=== PATIENT | male | born 1970 | race African-American/Black ===

== ENCOUNTER 2018-05-02 16:21 | Observation (INO) ==
[2018-05-02 17:16] LABS: Basophils # 0.1 10*3/uL (0.0-0.2); Basophils % 0.7 % (0.0-0.8); Eosinophils # 0.1 10*3/uL (0.0-0.87); Eosinophils % 0.9 % (0.00-10.9); Hematocrit 49.3 VOL% (42.0-52.0); Hemoglobin 16.2 GM/DL (14.0-18.0); Immature Granulocytes % 0.2 %; Immature Granulocytes Absolute 0.02 #; Lymphocytes # 2.3 10*3/uL (1.4-4.0); Lymphocytes % 26.9 % (21.2-54.2); Mean Corpuscular HGB Conc 32.9 GM/DL (32-36); Mean Corpuscular Hemoglobin 30 PG (27-34); Mean Corpuscular Volume 90.3 FL (87-102); Mean Platelet Volume 12.3 FL (9.6-12.0); Monocytes # 0.7 10*3/uL (0.11-0.8); Monocytes % 7.5 % (1.7-12.7); Neutrophils # 5.5 10*3/uL (1.4-7.4); Neutrophils % 63.8 % (38.7-73.9); Platelet Count 205 T/CUMM (130-400); Red Blood Count 5.46 MC/CUMM (3.8-5.5); Red Cell Distribution Width 11.9 % (9.3-17.3); White Blood Count 8.6 T/CUMM (4-12)
[2018-05-02 17:49] LABS: Bilirubin,Total 0.8 MG/DL (0.2-1.0); Calcium 9.1 MG/DL (8.5-10.1); Osmolality,Calculated 272.8 MOS/KG (273-304); Potassium 4.1 MMOL/L (3.5-5.1); Total Protein 8.2 G/DL (6.4-8.3)
[2018-05-02] MEDS ORDERED: SODIUM CHLORIDE 0.9% 1,000 ML IV STA (19:24)
[2018-05-02] MEDS ORDERED: ENOXAPARIN 80 MG/0.8 ML SYRINGE SUBCUT STA (20:05)
[2018-05-02] MEDS ORDERED: ACETAMINOPHEN 325 MG TABLET PO PRN (20:37)
[2018-05-02] MEDS ORDERED: ONDANSETRON 4 MG/2 ML VIAL IV PRN (20:37)
[2018-05-02] MEDS ORDERED: DOCUSATE SODIUM 100 MG CAPSULE PO PRN (20:37)
[2018-05-02] MEDS ORDERED: traZODone 50 MG TABLET PO PRN (20:37)
[2018-05-02] MEDS: SODIUM CHLORIDE 0.45% 1,000 ML IV SCH (23:06)
[2018-05-02] MEDS: ACETYLCYSTEINE 600 MG CAPSULE PO SCH (23:07)
[2018-05-03 04:29] LABS: Basophils % 0.6 % (0.0-0.8); Eosinophils # 0.1 10*3/uL (0.0-0.87); Eosinophils % 1.6 % (0.00-10.9); Hematocrit 42.9 VOL% (42.0-52.0); Hemoglobin 14.2 GM/DL (14.0-18.0); Immature Granulocytes % 0.1 %; Immature Granulocytes Absolute 0.01 #; Lymphocytes % 43.4 % (21.2-54.2); Mean Corpuscular HGB Conc 33.1 GM/DL (32-36); Mean Corpuscular Hemoglobin 30 PG (27-34); Mean Corpuscular Volume 91.1 FL (87-102); Mean Platelet Volume 12.4 FL (9.6-12.0); Monocytes # 0.7 10*3/uL (0.11-0.8); Monocytes % 9.9 % (1.7-12.7); Neutrophils # 3.1 10*3/uL (1.4-7.4); Neutrophils % 44.4 % (38.7-73.9); Platelet Count 172 T/CUMM (130-400); Red Blood Count 4.71 MC/CUMM (3.8-5.5); Red Cell Distribution Width 11.8 % (9.3-17.3); White Blood Count 6.9 T/CUMM (4-12)
[2018-05-03 04:52] LABS: Calcium 8.2 MG/DL (8.5-10.1); Osmolality,Calculated 271.8 MOS/KG (273-304); Potassium 3.7 MMOL/L (3.5-5.1)
[2018-05-03] MEDS: SODIUM CHLORIDE 0.45% 1,000 ML IV SCH ×5 (06:34→21:37)
[2018-05-03] MEDS ORDERED: APIXABAN 5 MG TABLET PO SCH (09:00)
[2018-05-03] MEDS: ACETYLCYSTEINE 600 MG CAPSULE PO SCH ×2 (09:04→21:37)
[2018-05-03] MEDS ORDERED: predniSONE 20 MG TABLET PO ONE (20:11)
[2018-05-03] MEDS: ENOXAPARIN 40 MG/0.4 ML SYRINGE SUBCUT SCH (21:37)
[2018-05-04 05:27] LABS: Calcium 8.8 MG/DL (8.5-10.1); Osmolality,Calculated 274.7 MOS/KG (273-304); Potassium 4.4 MMOL/L (3.5-5.1)
[2018-05-04] MEDS: SODIUM CHLORIDE 0.45% 1,000 ML IV SCH ×3 (06:43→16:18)
[2018-05-04] MEDS: predniSONE 20 MG TABLET PO SCH (08:40)
[2018-05-04] MEDS: LEVOFLOXACIN 500 MG TABLET PO SCH (08:40)
[2018-05-04] MEDS: ACETYLCYSTEINE 600 MG CAPSULE PO SCH ×2 (08:40→20:37)
[2018-05-04] MEDS: ENOXAPARIN 40 MG/0.4 ML SYRINGE SUBCUT SCH (20:37)
[2018-05-05] MEDS: SODIUM CHLORIDE 0.45% 1,000 ML IV SCH (03:59)
[2018-05-05] MEDS: LEVOFLOXACIN 500 MG TABLET PO SCH (08:56)
[2018-05-05] MEDS: predniSONE 20 MG TABLET PO SCH (08:57)
[2018-05-05] MEDS: ACETYLCYSTEINE 600 MG CAPSULE PO SCH (12:08)
[2018-05-05 12:26] VITALS: BP 138/93
== END 2018-05-05 14:00 | disposition home or self-care (01) ==
LOC: N.ED 16:21 → N.EDINP 16:21 → SUATTDRO 20:37 → N.TELEN 21:11
PROVIDERS: ADMIT Hospitalist; ATTEND Internal Medicine